=== PATIENT | male | born 1955 | race Caucasian/White ===

== ENCOUNTER 2018-03-16 15:13 | Observation (INO) | payer OTHER ==
[~2018-03-16 15:13] MED LIST: REGADENOSON INJ 0.4 MG/5 ML DISP.SYRIN IV ONE
--- NOTE | 2018-03-16 15:23 | ER Document Report ---
ED General - General Chief Complaint: Syncope Stated Complaint: POSSIBLE SYNCOPE Time Seen by Provider: 03/16/18 15:23 Notes: Patient is a 62-year-old male that presents to the emergency department for chief complaint of syncope. Patient reports that he has been having intermittent syncopal episodes over the last 4 months, but over the last week and a half he has had syncope every morning when he gets up. He believes it is only a few seconds when he gets up he has some nausea but no vomiting. He states he does not feel lightheaded before it happens, or has any nausea or vomiting. Denies any history of seizures. He is diabetic, but he states when he checks his blood glucose in the morning at around 110-120, and that has been like that for some time. He was seen at his primary care physician's office today, and they are concerned about the syncopal episodes, and he was diaphoretic in the office as well. The patient denies at this time any lightheadedness, headaches, chest pain, nausea, vomiting, shortness of breath or difficulty breathing. He also denies any recent dysuria or hematuria. Past Medical History: Diabetes mellitus, chronic low back pain Past Surgical History: Back surgery, spinal stimulator placement Social History: Denies current tobacco, alcohol or drug use Family History: Reviewed and noncontributory for presenting illness Allergies: Reviewed, see documented allergy list. REVIEW OF SYSTEMS: Unless otherwise stated in this report the patient's positive and negative responses for review of systems for constitutional, eyes, ENT, cardiovascular, respiratory, gastrointestinal, neurological, genitourinary, musculoskeletal, and integumentary systems and related systems to the presenting problem are either as stated in the HPI or were not pertinent or were negative for the symptoms and/or complaints related to the presenting medical problem. PHYSICAL EXAMINATION: Vital signs reviewed, nursing noted reviewed. GENERAL: Well-appearing, well-nourished and in no acute distress. HEAD: Atraumatic, normocephalic. EYES: Eyes appear normal, extraocular movements intact, sclera anicteric, conjunctiva are normal. ENT: nares patent, oropharynx clear without exudates. Moist mucous membranes. NECK: Normal range of motion, supple without lymphadenopathy LUNGS: Breath sounds clear to auscultation bilaterally and equal. No wheezes rales or rhonchi. HEART: Tachycardic, regular rhythm, no audible murmurs ABDOMEN: Soft, nontender, normoactive bowel sounds. No rebound, guarding, or rigidity. No masses appreciated. EXTREMITIES: Nontender, good range of motion, no pitting or edema. NEUROLOGICAL: No focal neurological deficits. Moves all extremities spontaneously Motor and sensory grossly intact on exam. PSYCH: Normal mood, normal affect. SKIN: Warm, diaphoretic, normal turgor, no rashes or lesions noted on exposed skin - Related Data Allergies/Adverse Reactions: Penicillins Allergy (Verified 03/16/18 16:25) sulfamethoxazole [From Bactrim] Allergy (Verified 03/16/18 16:26) trimethoprim [From Bactrim] Allergy (Verified 03/16/18 16:26) Past Medical History - Social History Smoking Status: Never Smoker Family History: Reviewed & Not Pertinent Physical Exam - Vital signs Vitals: Resp Pulse Ox 21 H 98 03/16/18 15:51 03/16/18 15:51 Course - Re-evaluation Re-evalutation: Patient seen and examined vital signs reviewed. Laboratory data and imaging were ordered as appropriate for the patient's presenting symptoms and complaint, with consideration of any critical or life threatening conditions that may be associated with their obtained history and exam as noted above. Patient was treated with IV fluid bolusing, 2 L total. Results were reviewed when available and demonstrated negative initial workup, chest x-ray negative, EKG demonstrating only sinus tachycardia, will order a d- dimer as well, and if positive will order CT Klarissa Tucker of the chest, his symptoms seem most consistent with orthostasis, as he gets lightheaded with sitting up this happened in the emergency department after getting up from CT, and it seems only occur in the morning when he gets up out of bed, however his orthostatic vital signs were negative prior to fluids, and given he said multiple episodes, his age and risk factors, I feel that the patient should be observed for the syncopal episodes D-dimer was also ordered, and was negative The patient was re-evaluated and was still tachycardic, this is when he was given a second liter of IV fluids Evaluation was most consistent with recurrent syncopal episodes I did discuss this case with the patient's primary care physician, who did send him over from his office, for this evaluation. Patient seen and examined vital signs reviewed. Results were discussed with the patient at this point after careful consideration I feel that that patient should be admitted to the hospital. This was discussed with the patient that it is in the best interest for their care to be admitted for further evaluation and management. Patient agreed with this plan of care. A call was placed to the admitted physician, Dr. Torres who graciously accepted the patient onto their service. *Note is created using voice recognition software and may contain spelling, syntax or grammatical errors. Laboratory 03/16/18 03/16/18 03/16/18 15:57 15:57 15:57 WBC 13.8 H RBC 5.56 H Hgb 17.7 H Hct 50.8 MCV 91 MCH 31.9 MCHC 34.9 RDW 13.3 Plt Count 301 Seg Neutrophils % 74.3 Lymphocytes % 18.2 Monocytes % 5.5 Eosinophils % 1.3 Basophils % 0.7 Absolute Neutrophils 10.3 H Absolute Lymphocytes 2.5 Absolute Monocytes 0.8 Absolute Eosinophils 0.2 Absolute Basophils 0.1 Sodium Cancelled Potassium Cancelled Chloride Cancelled Carbon Dioxide Cancelled Anion Gap Cancelled BUN Cancelled Creatinine Cancelled Est GFR ( Amer) Cancelled Est GFR (Non-Af Amer) Cancelled Glucose Cancelled Calcium Cancelled Total Bilirubin Cancelled Direct Bilirubin Cancelled Neonat Total Bilirubin Cancelled Neonat Direct Bilirubin Cancelled Neonat Indirect Bili Cancelled AST Cancelled ALT Cancelled Alkaline Phosphatase Cancelled Troponin I Cancelled Total Protein Cancelled Albumin Cancelled Urine Color Urine Appearance Urine pH Ur Specific [place] Urine Protein Urine Glucose (UA) Urine Ketones Urine Blood Urine Nitrite Urine Bilirubin Urine Urobilinogen Ur Leukocyte Esterase Urine WBC (Auto) Urine RBC (Auto) Squamous Epi Cells Auto Calcium Oxalate Cr Auto Urine Mucus (Auto) Urine Ascorbic Acid Urine Opiates Screen Urine Methadone Screen Ur Barbiturates Screen Ur Phencyclidine Scrn Ur Amphetamines Screen U Benzodiazepines Scrn Urine Cocaine Screen U Marijuana (THC) Screen 03/16/18 03/16/18 03/16/18 16:44 16:44 16:55 WBC RBC Hgb Hct MCV MCH MCHC RDW Plt Count Seg Neutrophils % Lymphocytes % Monocytes % Eosinophils % Basophils % Absolute Neutrophils Absolute Lymphocytes Absolute Monocytes Absolute Eosinophils Absolute Basophils Sodium 143.1 Potassium 4.5 Chloride 103 Carbon Dioxide 29 Anion Gap 11 BUN 15 Creatinine 0.66 Est GFR ( Amer) > 60 Est GFR (Non-Af Amer) > 60 Glucose 144 H Calcium 10.4 H Total Bilirubin 0.5 Direct Bilirubin 0.5 H Neonat Total Bilirubin Not Reportable Neonat Direct Bilirubin Not Reportable Neonat Indirect Bili Not Reportable AST 20 ALT 14 L Alkaline Phosphatase 90 Troponin I < 0.012 Total Protein 8.2 Albumin 4.7 Urine Color RAMBO Urine Appearance HAZY Urine pH 6.0 Ur Specific [place] 1.027 Urine Protein NEGATIVE Urine Glucose (UA) NEGATIVE Urine Ketones NEGATIVE Urine Blood NEGATIVE Urine Nitrite NEGATIVE Urine Bilirubin NEGATIVE Urine Urobilinogen 4.0 H Ur Leukocyte Esterase NEGATIVE Urine WBC (Auto) 6 Urine RBC (Auto) 154 Squamous Epi Cells Auto <1 Calcium Oxalate Cr Auto MODERATE Urine Mucus (Auto) MANY Urine Ascorbic Acid 40 H Urine Opiates Screen Urine Methadone Screen Ur Barbiturates Screen Ur Phencyclidine Scrn Ur Amphetamines Screen U Benzodiazepines Scrn Urine Cocaine Screen U Marijuana (THC) Screen 03/16/18 16:55 WBC RBC Hgb Hct MCV MCH MCHC RDW Plt Count Seg Neutrophils % Lymphocytes % Monocytes % Eosinophils % Basophils % Absolute Neutrophils Absolute Lymphocytes Absolute Monocytes Absolute Eosinophils Absolute Basophils Sodium Potassium Chloride Carbon Dioxide Anion Gap BUN Creatinine Est GFR ( Amer) Est GFR (Non-Af Amer) Glucose Calcium Total Bilirubin Direct Bilirubin Neonat Total Bilirubin Neonat Direct Bilirubin Neonat Indirect Bili AST ALT Alkaline Phosphatase Troponin I Total Protein Albumin Urine Color Urine Appearance Urine pH Ur Specific [place] Urine Protein Urine Glucose (UA) Urine Ketones Urine Blood Urine Nitrite Urine Bilirubin Urine Urobilinogen Ur Leukocyte Esterase Urine WBC (Auto) Urine RBC (Auto) Squamous Epi Cells Auto Calcium Oxalate Cr Auto Urine Mucus (Auto) Urine Ascorbic Acid Urine Opiates Screen NEGATIVE Urine Methadone Screen NEGATIVE Ur Barbiturates Screen NEGATIVE Ur Phencyclidine Scrn NEGATIVE Ur Amphetamines Screen NEGATIVE U Benzodiazepines Scrn NEGATIVE Urine Cocaine Screen NEGATIVE U Marijuana (THC) Screen NEGATIVE Chest X-Ray 03/16/18 15:23 IMPRESSION: NO ACUTE RADIOGRAPHIC FINDING IN THE CHEST. Head CT 03/16/18 15:59 IMPRESSION: NORMAL BRAIN CT WITHOUT CONTRAST. EVIDENCE OF ACUTE STROKE: NO. - Vital Signs Vital signs: Temp Pulse Resp BP Pulse Ox 106 H 20 175/98 H 98 03/16/18 18:37 03/16/18 19:01 03/16/18 19:01 03/16/18 19:01 - Laboratory Result Diagrams: 03/16/18 15:57 03/16/18 16:44 Laboratory results interpreted by me: 03/16/18 03/16/18 03/16/18 15:57 16:44 16:55 WBC 13.8 H RBC 5.56 H Hgb 17.7 H Absolute Neutrophils 10.3 H Glucose 144 H Calcium 10.4 H Direct Bilirubin 0.5 H ALT 14 L Urine Urobilinogen 4.0 H Urine Ascorbic Acid 40 H - EKG Interpretation by Me Additional EKG results interpreted by me: EKG demonstrates sinus tachycardia with a ventricular rate of 102 bpm, left axis deviation, normal intervals, there is a T wave depression in aVL, no ST segment changes noted. Leads appear to be flipped in leads V2 and V3, will repeat, compared with EKG obtained in the office, without acute change. 03/16/18 19:13 Repeat EKG demonstrates sinus rhythm with a ventricular rate of 97 bpm, left axis deviation, QTC 458 ms, no evidence of acute ischemia in this EKG. Discharge - Discharge Clinical Impression: Sinus tachycardia Syncope Qualifiers: Syncope type: unspecified Qualified Code(s): R55 - Syncope and collapse Leukocytosis Qualifiers: Leukocytosis type: unspecified Qualified Code(s): D72.829 - Elevated white blood cell count, unspecified Condition: Stable Disposition: ADMITTED OBSERVATION Admitting Provider: Hospitalist - DR. TORRES Unit Admitted: Telemetry
--- NOTE | 2018-03-16 15:58 | RADIOLOGY REPORT (SQ) ---
EXAM DESCRIPTION: CHEST SINGLE VIEW COMPLETED DATE/TIME: 03/16/2018 3:51 pm REASON FOR STUDY: syncope COMPARISON: None. EXAM PARAMETERS: NUMBER OF VIEWS: One view. TECHNIQUE: Single frontal radiographic view of the chest acquired. RADIATION DOSE: NA LIMITATIONS: None. FINDINGS: LUNGS AND PLEURA: No opacities, masses or pneumothorax. No pleural effusion. MEDIASTINUM AND HILAR STRUCTURES: No masses. Contour normal. HEART AND VASCULAR STRUCTURES: Heart normal in size. Normal vasculature. BONES: No acute findings. HARDWARE: Spinal stimulator electrodes over the lower thoracic spine OTHER: No other significant finding. IMPRESSION: NO ACUTE RADIOGRAPHIC FINDING IN THE CHEST. TECHNICAL DOCUMENTATION: JOB ID: [id number] [employer]- All Rights Reserved Reading location - IP/workstation name: [email or web address]
[2018-03-16 16:10] LABS: ABSOLUTE BASOPHILS # (AUTO) 0.1 10^3/uL (0.0-0.2); ABSOLUTE EOSINOPHILS # (AUTO) 0.2 10^3/uL (0.0-0.6); ABSOLUTE LYMPHOCYTES (AUTO) 2.5 10^3/uL (0.5-4.7); ABSOLUTE MONOCYTES (AUTO) 0.8 10^3/uL (0.1-1.4); ABSOLUTE NEUT (AUTO) 10.3 10^3/uL (1.7-8.2); BASOPHILS % (AUTO) 0.7 % (0-2); EOSINOPHILS % (AUTO) 1.3 % (0-6); HEMATOCRIT 50.8 % (37.9-51.0); HEMOGLOBIN 17.7 g/dL (13.5-17.0); LYMPHOCYTES % (AUTO) 18.2 % (13-45); MEAN CORPUSCULAR HEMOGLOBIN 31.9 pg (27.0-33.4); MEAN CORPUSCULAR HGB CONC 34.9 g/dL (32.0-36.0); MEAN CORPUSCULAR VOLUME 91 fl (80-97); MONOCYTES % (AUTO) 5.5 % (3-13); PLATELET COUNT 301 10^3/uL (150-450); RED BLOOD COUNT 5.56 10^6/uL (4.35-5.55); RED CELL DISTRIBUTION WIDTH 13.3 % (11.5-14.0); SEGMENTED NEUTROPHILS % (AUTO) 74.3 % (42-78); TOTAL CELLS COUNTED % (AUTO) 100 %; WHITE BLOOD COUNT 13.8 10^3/uL (4.0-10.5)
[2018-03-16] MEDS ORDERED: NORMAL SALINE 1000 ML 1,000 ML IV ONE ×2 (16:30→18:37)
[2018-03-16 17:18] LABS: ALANINE AMINOTRANSFERASE 14 U/L (21-72); ALBUMIN 4.7 g/dL (3.5-5.0); ALKALINE PHOSPHATASE 90 U/L (38-126); ANION GAP 11 (5-19); ASPARTATE AMINO TRANSFERASE 20 U/L (17-59); BILIRUBIN,DIRECT 0.5 mg/dL (0.0-0.4); BILIRUBIN,TOTAL 0.5 mg/dL (0.2-1.3); BLOOD UREA NITROGEN 15 mg/dL (7-20); CALCIUM 10.4 mg/dL (8.4-10.2); CARBON DIOXIDE 29 mmol/L (22-30); CHLORIDE 103 mmol/L (98-107); GLUCOSE 144 mg/dL (75-110); POTASSIUM 4.5 mmol/L (3.6-5.0); SODIUM 143.1 mmol/L (137-145); TOTAL PROTEIN 8.2 g/dL (6.3-8.2)
[2018-03-16 17:52] LABS: APPEARANCE,URINE HAZY; BILIRUBIN,URINE NEGATIVE (NEGATIVE); CALCIUM OXALATE CRYSTALS,URINE MODERATE /HPF; COLOR,URINE AMBER; GLUCOSE, URINE NEGATIVE (NEGATIVE); KETONES,URINE NEGATIVE (NEGATIVE); LEUKOCYTE ESTERASE,URINE NEGATIVE (NEGATIVE); NITRITE,URINE NEGATIVE (NEGATIVE); PROTEIN,URINE NEGATIVE (NEGATIVE)
[2018-03-16 17:56] LABS: URINE SPECIFIC GRAVITY 1.027
--- NOTE | 2018-03-16 18:03 | RADIOLOGY REPORT (SQ) ---
EXAM DESCRIPTION: CT HEAD WITHOUT COMPLETED DATE/TIME: 03/16/2018 5:47 pm REASON FOR STUDY: recurrent syncopal episodes COMPARISON: 02/01/2007 TECHNIQUE: Axial images acquired through the brain without intravenous contrast. Images reviewed wi th bone, brain and subdural windows. Additional sagittal and coronal reconstructions were generated. Images stored on PACS. All CT scanners at this facility use dose modulation, iterative reconstruction, and/or weight based d osing when appropriate to reduce radiation dose to as low as reasonably achievable (ALARA). [facility]: Dose Right [facility]: CareDose [facility]: Dose Right [facility]: Teradose 4D [facility]: Smart 8thBridge RADIATION DOSE: CT Rad equipment meets quality standard of care and radiation dose reduction techniq ues were employed. CTDIvol: 53.2 mGy. DLP: 1097 mGy-cm. mGy. LIMITATIONS: None. FINDINGS: VENTRICLES: Normal size and contour. CEREBRUM: No masses. No hemorrhage. No midline shift. No evidence for acute infarction. Normal gra y/white matter differentiation. No areas of low density in the white matter. CEREBELLUM: No masses. No hemorrhage. No alteration of density. No evidence for acute infarction. EXTRAAXIAL SPACES: No fluid collections. No masses. ORBITS AND GLOBE: No intra- or extraconal masses. Normal contour of globe without masses. CALVARIUM: No fracture. PARANASAL SINUSES: No fluid or mucosal thickening. SOFT TISSUES: No mass or hematoma. OTHER: No other significant finding. IMPRESSION: NORMAL BRAIN CT WITHOUT CONTRAST. EVIDENCE OF ACUTE STROKE: NO. COMMENT: Quality ID # [id number]: Final reports with documentation of one or more dose reduction techniques (e.g., Automated exposure control, adjustment of the mA and/or kV according to patient size, use of iterative reconstruction technique) TECHNICAL DOCUMENTATION: JOB ID: [id number] [employer]- All Rights Reserved Reading location - IP/workstation name: [email or web address]
[2018-03-16 18:08] LABS: URINE AMPHETAMINES SCREEN NEGATIVE; URINE BARBITURATES SCREEN NEGATIVE; URINE BENZODIAZEPINES SCREEN NEGATIVE; URINE COCAINE SCREEN NEGATIVE; URINE MARIJUANA (THC) SCREEN NEGATIVE; URINE METHADONE SCREEN NEGATIVE; URINE PHENCYCLIDINE SCREEN NEGATIVE
--- NOTE | 2018-03-16 18:11 | EKG REPORT ---
SEVERITY:- ABNORMAL ECG - SINUS TACHYCARDIA LEFT AXIS DEVIATION CONSIDER ANTERIOR INFARCT TALL R WAVE IN V2, CONSIDER RVH OR PMI : Confirmed by: Patricia Ramos MD 16-Mar-2018 18:11:18
[2018-03-16] MEDS ORDERED: ACETAMINOPHEN 325 MG TABLET PO PRN (21:22)
[2018-03-16] MEDS ORDERED: MAG HYDROX/AL HYDROX/SIMETH SUSP 30 ML UDCUP PO PRN (21:22)
[2018-03-16] MEDS ORDERED: TEMAZEPAM 7.5 MG CAPSULE PO PRN (21:22)
[2018-03-16] MEDS ORDERED: PROMETHAZINE HCL INJ 25 MG/1 ML VIAL IV PRN (21:22)
[2018-03-16] MEDS ORDERED: PROMETHAZINE HCL 25 MG TABLET PO PRN (21:22)
[2018-03-16] MEDS ORDERED: FENTANYL 75 MCG/HR PATCH.TD72 TD SCH (22:00)
[2018-03-16] MEDS ORDERED: NORTRIPTYLINE HCL 25 MG CAPSULE PO ONE (22:30)
[2018-03-16] MEDS ORDERED: METOPROLOL TARTRATE PF/INJ 5 MG/5 ML SDV IV PRN (22:42)
--- NOTE | 2018-03-16 22:42 | PDOC H&P ---
History of Present Illness Admission Date/PCP: 03/16/18 19:39 JOSÉ LUIS MARTINEZ MD Patient complains of: Syncope History of Present Illness: RUBY GAN is a 62 year old male who has been sent to the emergency department from his primary care physician Dr. Martinez for evaluation of syncope. Patient tells me that for the last 4 months every time that he wakes up and get up to walk has a syncopal episode. If he sits at the bedside he is lightheaded and as soon as he is a standing up he does not remember anything, he lives alone and tells me that nobody witnessed these episodes, he could not tell me for how long he was unconscious but when he wakes up is confused for a couple of minutes and feel nauseous but did not vomit, denies having urinary or fecal incontinence. Denies having any palpitations, chest pain, headaches, shortness of breath before episodes, denies having history of seizures. Orthostatic vital signs in the ED negative, d-dimer negative, urinalysis negative, urine toxicology negative. Patient denies having any cardiac disease and the EKG shows sinus tachycardia with inferior Q waves. In the ED patient is asymptomatic. CT of the head negative. He checks blood sugar in the morning are around 110-120s His daughters were concerned of these episodes and asked him to see his primary care physician Past Medical History Endocrine Medical History: Reports: Diabetes Mellitus Type 2 Musculoskeltal Medical History: Reports: Other - Chronic back pain Past Surgical History Past Surgical History: Reports: Orthopedic Surgery - Several back surgeries with a spinal stimulator Social History Smoking Status: Never Smoker Cigars Per Day: 0 - Used to smoke cigars, quit in 2008 Frequency of Alcohol Use: None Hx Recreational Drug Use: No Hx Prescription Drug Abuse: No Family History Family History: Mother when was 86 years old she had dementia and diabetes mellitus type 2. Father on his 80s unknown cause Parental Family History Reviewed: Yes - As above Children Family History Reviewed: NA Sibling(s) Family History Reviewed.: NA Medication/Allergy Home Medications: Fentanyl [Duragesic 75 Mcg/Hr Transdermal Patch] 1 each TD Q3D 03/16/18 Nortriptyline HCl [Pamelor] 50 mg PO QHS 03/16/18 Tizanidine HCl [Zanaflex 4 Mg Tablet] 8 mg PO DAILY 03/16/18 Allergies/Adverse Reactions: Penicillins Allergy (Verified 03/16/18 16:25) sulfamethoxazole [From Bactrim] Allergy (Verified 03/16/18 16:26) trimethoprim [From Bactrim] Allergy (Verified 03/16/18 16:26) Review of Systems Review of Systems: As outlined in the HPI, others negative Physical Exam Vital Signs: Temp Pulse Resp BP Pulse Ox 98.4 F 95 14 155/85 H 99 03/16/18 22:10 03/16/18 22:10 03/16/18 22:10 03/16/18 22:10 03/16/18 22:10 Intake & Output 03/15/18 03/16/18 03/17/18 06:59 06:59 06:59 Intake Total 1000 Balance 1000 Weight 108.5 kg Additional comments: General appearance: Well-developed, well-nourished, alert and cooperative, and appears to be in no acute distress Head: Normocephalic Eyes: PEERL, EOMI, vision is grossly intact. Ears: External auditory canal and tympanic membranes clear, hearing grossly intact. Nose: No nasal discharge. Throat: Oral cavity and pharynx normal. No inflammation, swelling, exudate or lesions. Neck: Neck supple, nontender without lymphadenopathy, masses or thyromegaly. Cardiac: Normal S1 and S2. No S3, S4 or murmurs. Rhythm is regular. There is no peripheral edema, cyanosis or pallor. Extremities are warm and well perfused. Capillary refill is less than 2 seconds. No carotid bruits. Lungs: Clear to auscultation and percussion without rales, rhonchi, wheezing or diminished breath sounds. Not using accessory muscles. Abdomen: Positive bowel sounds. Soft. Nondistended, nontender. No guarding or rebound. No masses. No hepatosplenomegaly Extremities: No significant deformity or joint abnormality. No edema. Peripheral pulses intact. No varicosities. Neurological: Cranial nerves II through XII grossly intact. Strength and sensation symmetric and intact throughout. Reflexes 2+ throughout. Skin: Skin normal color, texture and turgor with no lesions or eruptions, warm and dry. Psychiatric: The mental examination revealed the patient was oriented to person , place, and time. The patient was able to demonstrate good judgment on recent , without hallucinations, abnormal affect or abnormal behaviors. Results Laboratory Results: 03/16/18 20:20 Troponin I < 0.012 03/16/18 03/16/18 03/16/18 15:57 15:57 16:44 WBC 13.8 H RBC 5.56 H Hgb 17.7 H Hct 50.8 MCV 91 MCH 31.9 MCHC 34.9 RDW 13.3 Plt Count 301 Seg Neutrophils % 74.3 Lymphocytes % 18.2 Monocytes % 5.5 Eosinophils % 1.3 Basophils % 0.7 Absolute Neutrophils 10.3 H Absolute Lymphocytes 2.5 Absolute Monocytes 0.8 Absolute Eosinophils 0.2 Absolute Basophils 0.1 D-Dimer < 0.27 Sodium 143.1 Potassium 4.5 Chloride 103 Carbon Dioxide 29 Anion Gap 11 BUN 15 Creatinine 0.66 Est GFR ( Amer) > 60 Est GFR (Non-Af Amer) > 60 Glucose 144 H Calcium 10.4 H Total Bilirubin 0.5 Direct Bilirubin 0.5 H AST 20 ALT 14 L Alkaline Phosphatase 90 Troponin I Total Protein 8.2 Albumin 4.7 03/16/18 03/16/18 16:44 20:20 WBC RBC Hgb Hct MCV MCH MCHC RDW Plt Count Seg Neutrophils % Lymphocytes % Monocytes % Eosinophils % Basophils % Absolute Neutrophils Absolute Lymphocytes Absolute Monocytes Absolute Eosinophils Absolute Basophils D-Dimer Sodium Potassium Chloride Carbon Dioxide Anion Gap BUN Creatinine Est GFR ( Amer) Est GFR (Non-Af Amer) Glucose Calcium Total Bilirubin Direct Bilirubin AST ALT Alkaline Phosphatase Troponin I < 0.012 < 0.012 Total Protein Albumin EKG Comments: Sinus tachycardia with inferior Q waves Impressions: Chest X-Ray 03/16/18 15:23 IMPRESSION: NO ACUTE RADIOGRAPHIC FINDING IN THE CHEST. Head CT 03/16/18 15:59 IMPRESSION: NORMAL BRAIN CT WITHOUT CONTRAST. EVIDENCE OF ACUTE STROKE: NO. Assessment & Plan - Diagnosis (1) Syncope Qualifiers: Syncope type: unspecified Qualified Code(s): R55 - Syncope and collapse Is this a current diagnosis for this admission?: Yes Plan: Patient comes with syncopal episode that happens every morning, unclear etiology. Dr. Martinez is his primary care physician sent him to the emergency department for a syncope workup. We will keep the patient on telemetry monitoring, cardiac markers total of x3, echocardiogram, carotid ultrasound. I am placing an order for cardiology evaluation and stress test for evaluation and further recommendations, patient might need Holter or implantable loop recorder. If everything negative patient might need an EEG. CT of the head negative. Tachycardic in the emergency department with a heart rate in the 100s and elevated blood pressure at 175/98 (2) Diabetes mellitus type 2 in nonobese Is this a current diagnosis for this admission?: Yes Plan: We will resume his home insulin, Accu-Cheks q. before meals and at bedtime, insulin lispro sliding scale and hypoglycemia protocol (3) Erythrocytosis Is this a current diagnosis for this admission?: Yes Plan: Erythrocytosis with hemoglobin of 17, there is a possible hemoconcentration, patient has received 2 L of IV fluids in the ED and will reassess his CBC in the morning. If not resolving patient might need to get this workup. - Time Time Spent: 30 to 50 Minutes
[2018-03-16] MEDS ORDERED: GLUCAGON,HUMAN RECOMB 1 MG INJ IM PRN (22:56)
[2018-03-16] MEDS ORDERED: DEXTROSE 50%-WATER SYRINGE 25 GM/50 ML DOSE IV PRN (22:56)
[2018-03-16] MEDS ORDERED: INSULIN LISPRO 100 UNIT/ML 3 ML VIAL SUBCUT PRN (22:56)
[2018-03-16] MEDS ORDERED: DEXTROSE 50%-WATER SYRINGE 12.5 GM/25 ML DOSE IV PRN (22:56)
[2018-03-16] MEDS ORDERED: DEXTROSE 40% GEL 15 GM TUBE X 2 PO PRN (22:56)
[2018-03-16] MEDS ORDERED: DEXTROSE 40% GEL 15 GM TUBE PO PRN (22:56)
[2018-03-16] MEDS ORDERED: FLUTICASONE NASAL SPRAY 50 MCG/SPRY 120 SPRAY/16 GM NASL PRN (22:57)
[2018-03-16] MEDS ORDERED: FLUTICASONE NASAL SPRAY 50 MCG/SPRY 120 SPRAY/16 GM NASL ONE (23:00)
[2018-03-16] MEDS ORDERED: NORTRIPTYLINE HCL 25 MG CAPSULE ONE (23:07)
[2018-03-16] MEDS ORDERED: FLUTICASONE NASAL SPRAY 50 MCG/SPRY 120 SPRAY/16 GM ONE (23:08)
--- NOTE | 2018-03-17 08:16 | EKG REPORT ---
SEVERITY:- ABNORMAL ECG - SINUS TACHYCARDIA ABNRM R PROG, CONSIDER LEAD PLACEMENT LEFT AXIS DEVIATION .LAHB : Confirmed by: Patricia Ramos MD 17-Mar-2018 08:15:58
--- NOTE | 2018-03-17 08:17 | EKG REPORT ---
SEVERITY:- DEFECTIVE ECG - SINUS RHYTHM BORDERLINE IVCD WITH LAD INTERCHANGED V2 AND V3 LEADS.REPEAT EKG. : Confirmed by: Patricia Ramos MD 17-Mar-2018 08:16:54
[2018-03-17] MEDS ORDERED: METOPROLOL SUCCINATE 50 MG TAB.SR.24H PO SCH (10:00)
[2018-03-17] MEDS ORDERED: TIZANIDINE HCL 4 MG TABLET PO SCH ×2 (10:00→12:30)
[2018-03-17] MEDS ORDERED: ENOXAPARIN SODIUM INJ 40 MG/0.4 ML DISP.SYRIN SUBCUT SCH (10:00)
--- NOTE | 2018-03-17 13:05 | DRAGON STRESS TEST REPORT ---
INTRAVENOUS LEXISCAN CARDIOLITE STRESS TEST USING SINGLE PHOTON EMMISION COMPUTERIZED TOMOGRAPHIC. DATE OF PROCEDURE: March 17, 2018, INDICATION : Syncope CARDIAC RISK FACTORS: Diabetes, dyslipidemia, family history of CAD RESTING EKG: Sinus rhythm, no baseline ST-T wave changes STRESS EKG: No significant ST segment changes noted with LexiScan bolus REASON FOR TERMINATION: Protocol. PROCEDURE REPORT: Baseline heart rate 84 beats per minute with blood pressure of 153/84. Patient had no significant complaints. Patient was bolused with Lexiscan 0.4 mg intravenously followed by saline bolus. Heart rate at 2 minutes post bolus 99 with a blood pressure of 146/68. 3 minutes post bolus heart rate 97 with blood pressure of 136/75. No significant EKG changes were noted. Patient had no significant complaints during the procedure or postprocedure. CONCLUSIONS: Normal EKG and hemodynamic response to IV LexiScan. NUCLEAR DATA: At rest the patient was given 15.90 millicuries of technetium 99 sestamibi injected intravenously. As per protocol rest gated SPECT images were obtained. On day of stress test, the patient was given intravenous LexiScan at a dose of 0.4 mg in 5 mL intravenously, followed by flush with normal saline. Subsequently the stress dose of 47.2 millicuries of technetium 99 sestamibi was injected intravenously. As per protocol stress gated images were obtained. NUCLEAR INTERPRETATION: Both raw and processed data were used for interpretation. Visual, qualitative, computer-generated quantitative data was used. There was good myocardial uptake of technetium compound. Motion artifact and soft tissue attenuations were noted. Increased visceral uptake was noted. No definitive areas of transient perfusion defect noted, No definitive areas of fixed perfusion defect or scars noted. EKG gated imaging showed LV EF at 60 %, rest and stress gated EF similar visually. T. I D. ratio was 0.95. Lung heart ratio noted to be within normal limits 0.30. No significant extracardiac and abnormal radiotracer activities were noted. RV free wall uptake was noted to be WNL. IMPRESSION: Also refer to comments under nuclear interpretation. Also test results needs to be interpreted in the context of pretest probability. 1. No definitive areas of transient perfusion defect noted. 2. There is no definitive scintigraphic evidence of myocardial infarction/scar. 3. EKG gated imaging shows left ventricular ejection fraction of approx. 60 %. 4. Clinical correlation requested as worse disease and or balanced ischemia could be missed. In approximately 10% of the cases Lexiscan may not cause adequate vasodilatory stress. RECOMMENDATIONS: Aggressive risk factor modification and medical management. Further evaluation may be needed if continued symptoms or other high risk indicators are noted on clinical evaluation. Close cardiology follow-up is also recommended. Clinical correlation with echocardiogram derived ejection fraction. Inability to exercise by itself can lead to increased cardiovascular event risks. Consider cardiology consultation and or follow-up if clinically indicated. I am available for cardiology evaluation and consultation if requested by the table tender, unless patient already has a technical lead. Dr. Theodora Araujo. MRCP Board certified in cardiology and sleep medicine. Board certified in nuclear cardiology, adult echocardiography. SWAPNA
[2018-03-17 14:19] VITALS: BP 152/81
[2018-03-17] MEDS ORDERED: NORTRIPTYLINE HCL 25 MG CAPSULE PO SCH (22:00)
--- NOTE | 2018-03-19 11:23 | PDOC DISCHARGE SUMMARY ---
General - Admit/Disc Date/PCP Admission Date/Primary Care Provider: 03/16/18 19:39 JOSÉ LUIS MARTINEZ MD Discharge Date: 03/17/18 - Discharge Diagnosis (1) Diabetes mellitus type 2 in nonobese Is this a current diagnosis for this admission?: Yes Summary: We will decrease insulin to 40 units nightly and hold on Trulicity (2) Leukocytosis Is this a current diagnosis for this admission?: Yes Summary: Most probably secondary to dehydration. Will hydrate (3) Sinus tachycardia Is this a current diagnosis for this admission?: Yes Summary: Most probably secondary to dehydration. The symptoms have resolved with metoprolol and rehydration (4) Syncope Is this a current diagnosis for this admission?: Yes Summary: Continue improving hydration - Additional Information Discharge Activity: Activity As Tolerated Prescriptions: Metoprolol Succinate [Toprol Xl 50 mg Tab.sr] 50 mg PO DAILY #30 tab.sr.24h Home Medications: Fentanyl [Duragesic 75 Mcg/Hr Transdermal Patch] 1 each TD Q3D 03/16/18 Nortriptyline HCl [Pamelor] 50 mg PO QHS 03/16/18 Tizanidine HCl [Zanaflex 4 mg Tablet] 8 mg PO DAILY 03/16/18 Metoprolol Succinate [Toprol Xl 50 mg Tab.sr] 50 mg PO DAILY #30 tab.sr.24h 02/24 History of Present Illness History of Present Illness: RUBY GAN is a 62 year old male Hospital Course Hospital Course: The patient was admitted directly from the office because of syncopal episode with diaphoresis and tachycardia. All his workup was essentially unremarkable except for dehydration with hemoconcentration. The patient has been rehydrated has been started on metoprolol with significant improvement in his tachycardia and symptomatology and was discharged home after a negative stress test Physical Exam Vital Signs: Temp Pulse Resp BP Pulse Ox 97.9 F 92 16 152/81 H 97 03/17/18 14:16 03/17/18 14:16 03/17/18 14:16 03/17/18 14:16 03/17/18 14:16 General appearance: PRESENT: no acute distress Head exam: PRESENT: atraumatic Eye exam: PRESENT: conjunctiva pink Neck exam: ABSENT: carotid bruit, JVD Respiratory exam: PRESENT: clear to auscultation mario Cardiovascular exam: PRESENT: RRR, +S1, +S2 GI/Abdominal exam: PRESENT: normal bowel sounds, soft Extremities exam: PRESENT: full ROM Musculoskeletal exam: PRESENT: ambulatory Results Laboratory Results: 03/16/18 03/17/18 03/17/18 20:20 02:23 14:28 Troponin I < 0.012 < 0.012 < 0.012 Impressions: Chest X-Ray 03/16/18 15:23 IMPRESSION: NO ACUTE RADIOGRAPHIC FINDING IN THE CHEST. Head CT 03/16/18 15:59 IMPRESSION: NORMAL BRAIN CT WITHOUT CONTRAST. EVIDENCE OF ACUTE STROKE: NO. Qualifiers - * PATIENT BEING DISCHARGED WITH ANY OF THE FOLLOWING DIAGNOSIS: No
== END 2018-03-17 14:52 | disposition home or self-care (01) ==
LOC: ER 15:13 → EH 19:39 → 4N 21:59
PROVIDERS: ADMIT Internal Medicine; ATTEND Internal Medicine
DX: E11.9 Type 2 diabetes mellitus without complications (principal); D72.829 Elevated white blood cell count, unspecified; R00.0 Tachycardia, unspecified; R55 Syncope and collapse; R11.0 Nausea; D75.1 Secondary polycythemia; G89.29 Other chronic pain; M54.5 Low back pain; R61 Generalized hyperhidrosis; Z79.899 Other long term (current) drug therapy; Z87.891 Personal history of nicotine dependence; Z97.8 Presence of other specified devices; Z83.3 Family history of diabetes mellitus; Z79.4 Long term (current) use of insulin
CPT/HCPCS: 93005; 99285; 96360; 96361; 51702; 36415; 82962; 84443; 85025; 80053; 81001; 84484 ×2; 80307; 85379; 93017; 71045; 78452; 70450; 93010; G0378 ×2; A9500; J3490 ×4; J2785; A9270; J7030; Q9969